=== PATIENT | male | born 1955 | race Caucasian/White ===

== ENCOUNTER 2017-02-24 11:35 | Inpatient (IN) ==
[2017-02-24] MEDS ORDERED: Ringers Solution, Lactated 1,000 ML IVC SCH (12:45)
[2017-02-24] MEDS ORDERED: CeFAZolin Pre 3,000 MG/100 ML 3,000 MG/100 ML BAG IVPB ONE (12:45)
[2017-02-24] MEDS ORDERED: Lidocaine -MPF 1% 2 ML VIAL ID ONE (12:45)
[2017-02-24] MEDS ORDERED: Vancomycin 2,000 MG in D5% in Water 500 ML IVPB ONE (12:45)
[2017-02-24] MEDS ORDERED: Albuterol 2.5 MG/3 ML NEBULIZER IH ONE (12:45)
--- NOTE | 2017-02-24 12:54 | Anesthesia Evaluation PreOp ---
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 Other Medical History: Diabetes Type II Anesthesia History: Past Anesthesia (none) Alcohol Use: heavy Drug use: marijuana Medications and Allergies Aspirin [Lo-Dose Aspirin EC] 81 mg PO DAILY 02/24/17 [History] Atorvastatin [Lipitor] 40 mg PO HS 02/24/17 [History] Carvedilol [Coreg] 6.25 mg PO BID 02/24/17 [History] Clopidogrel [Plavix] 75 mg PO DAILY 02/24/17 [History] Metformin HCl [Glucophage] 1,000 mg PO BID 02/24/17 [History] [place]-3/Dha/Epa/Fish Oil [Fish Oil 1,000 mg Softgel] 1 cap PO DAILY 02/24/17 [ History] 3 Allergy/AdvReac Type Severity Reaction Status Date / Time No Known Allergies Allergy Verified 02/24/17 12:35 - Meds/Allergy Pre-op Review Medications Reviewed: Yes Allergies Reviewed: Yes Beta Blockers on Current Med List: Yes If Beta Blockers taken, Date/Time (Last Dose taken): today 0800 Anesthesia Results - Labs Laboratory Tests 02/07/17 02/07/17 02/07/17 13:40 13:40 13:40 Hgb 16.4 Hct 51.0 H Plt Count 234 PT 12.2 H INR 1.1 APTT 30.9 Sodium 139 Potassium 4.7 H BUN 9 Creatinine 0.77 - Imaging Additional studies: stress test:The left ventricle is dilated. Gated LVEF = 43%. Medium sized, moderate-severe intensity, predominantly fixed perfusion defect involving the basal inferolateral wall and basal-mid inferior wall. Findings are consistent with myocardial infarction with mild ramya-infarct ischemia. Recommend cardiology consultation. Abnormal results were communicated to the ordering physician via [employer] message. Anesthesia Exam Selected Entries 02/24/17 12:34 Temperature 97.7 F Pulse Rate 66 Respiratory Rate 18 Blood Pressure 112/69 O2 Sat by Pulse Oximetry 92 Weight: 132kg NPO (# of Hours): 8 Pain Scale: 0 Pain Scale Used: Numeric (1 - 10) - HEENT Pupil (Motor): EOMI Mallampati: II Teeth: Normal Oral Opening: Greater than 3 - TAFE LECTURER LOC: Oriented TAFE LECTURER Motor: Normal RUE, Normal LUE, Normal RLE, Normal LLE, Normal Face TAFE LECTURER Sensory: Normal: RUE, LUE, RLE, LLE, Face - Cardiac Rhythm: Regular Murmur: None - Pulmonary Breath Sounds: bilateral Clear Respiratory Effort: Symmetrical Anesthesia Assess/Plan ASA Score: 4 Modified [place] Scale for Level of Consciousness: Cooperative, oriented, and tranquil Anesthetic Plan: General Monitoring Plan: Standard Monitors, A-Line Recovery Plan: PACU (Discussed risks of GA and lines. Aware of high risk. Questions answered and agrees to proceed.)
[2017-02-24] MEDS ORDERED: Heparin 1,000 UNITS/500 mL NS 500 ML ONE ×3 (13:54→14:27)
--- NOTE | 2017-02-24 14:03 | History & Physical Report ---
Date of Encounter: 02/24/17 Time of Encounter: 13:55 24 Hour HP Update - Instructions Instructions: If the History and Physical is less than 30 days old and was completed prior to A.M. admission and or procedure and has NOT been updated on calendar day of procedure please complete this update prior to performing procedure. - Update Patient reports changes in Medical Condition: No Changes in examination, assessment, or condition: No Changes in Medication: No Preop tests/diagnostics Reviewed: Yes Surgery Remains Indicated: Yes Consent for Planned Operative Procedure(s) Verified: Yes - Pre-Operative Checklist Preoperative Checklist Indicated: Yes Prophylactic Antibiotic Ordered: Yes (Vancomycin due to MRSA risk.) Home Medications Include Beta Srinivasan: Yes Beta Srinivasan Taken Today (Day of Surgery): Yes Beta Srinivasan Taken Yesterday (Day Prior to Surgery): Yes Is VTE Prophylaxis Indicated?: Yes
[2017-02-24] MEDS ORDERED: Bupivacaine-MPF 0.25% 10 ML VIAL ONE (14:27)
[2017-02-24] MEDS ORDERED: Vancomycin 1,000 MG VIAL ONE ×2 (14:27→15:33)
[2017-02-24] MEDS ORDERED: Heparin 1,000 UNITS/500 mL NS 0 ML ONE (15:33)
[2017-02-24] MEDS ORDERED: *HR* HYDROmorphone (PF) 1 MG/ML SYRINGE IVP PRN (16:03)
[2017-02-24] MEDS ORDERED: *HR* Labetalol 20 MG/4 ML SYRINGE IVP PRN ×2 (16:03→20:01)
[2017-02-24] MEDS ORDERED: Ondansetron 4 MG/2 ML VIAL IVP PRN ×2 (16:03→20:01)
--- NOTE | 2017-02-24 16:06 | Anesthesia Procedures ---
Date of Encounter: 02/24/17 Time of Encounter: 14:55 Procedures: Anesthesia - Arterial Line Consent obtained: verbal consent Time out performed: Yes Sedation: Versed (mg): 2 Sedation: Fentanyl (mcg): 100 Supplemental Oxygen via Nasal Cannula (L/min): 8 Local Anesthetic: Lidocaine 1% Amount of Anesthetic used (mls): 0.1 Size (Gauge): 20 Length (inches): 1 3/4 Technique Used: sterile prep, guide wire technique, direct puncture technique Post-Procedure: line taped into place, dry sterile dressing placed Patient tolerated procedure: well, no complications Complications: none Site: Radial L
[2017-02-24] MEDS ORDERED: *HR* Phenylephrine 10 MG/ML VIAL ONE (16:18)
[2017-02-24] MEDS ORDERED: *HR* Rocuronium Bromide 50 MG/5 ML VIAL ONE (16:18)
[2017-02-24] MEDS ORDERED: Lidocaine -MPF 4% 5 ML AMPUL ONE (16:18)
[2017-02-24] MEDS ORDERED: *HR* Heparin 5,000 UNIT/ML VIAL ONE ×2 (16:18→16:48)
[2017-02-24] MEDS ORDERED: *HR* Remifentanil 1 MG VIAL IVP ONE (16:18)
[2017-02-24] MEDS ORDERED: Lidocaine -MPF 2% 2 ML VIAL ONE ×2 (16:18)
[2017-02-24] MEDS ORDERED: *HR* FentaNYL (PF) 100 MCG/2 ML VIAL ONE (16:18)
[2017-02-24] MEDS ORDERED: *HR* Midazolam HCl 2 MG/2 ML VIAL ONE (16:18)
[2017-02-24] MEDS ORDERED: *HR* Propofol 200 MG/20 ML VIAL IVP ONE (16:18)
[2017-02-24] MEDS ORDERED: Protamine Sulfate 50 MG/5 ML VIAL IVP ONE (16:30)
[2017-02-24] MEDS ORDERED: EPHEDrine 50 MG/ML VIAL ONE (16:33)
[2017-02-24] MEDS ORDERED: Neostigmine Methylsulfate 3 MG/3 ML SYRINGE ONE (17:53)
[2017-02-24] MEDS ORDERED: *HR* Labetalol 20 MG/4 ML SYRINGE IVP ONE (17:57)
[2017-02-24] MEDS ORDERED: *HR* HYDROmorphone 2 MG/ML SYRINGE ONE (18:11)
--- NOTE | 2017-02-24 18:11 | Operative Note ---
Date of procedure: 02/24/17 Pre-op diagnosis: 80-99% Left internal carotid artery stenosis Post-op diagnosis: same Procedure: Left carotid endarterectomy with hemashield patch angioplasty. Complications: None Anesthesia: CHANGA Surgeon: Favian Contreras Estimated blood loss (cc): 100 Specimen: Left carotid plaque Condition: stable Disposition: PACU Procedure in Detail: Indications: The patient is a 62 year old male with a history of coronary artery disease, hypertension, tobacco abuse and diabetes who was found to have an 80-99% left internal carotid artery stenosis. A left carotid endarterectomy was recommended to reduce his risk of stroke. Procedure: The patient was identified in the preoperative area. The risks, benefits, and alternatives of the procedure were discussed and all questions were answered. The patient was then taken to the operating room and placed in supine position on the operating table. After induction of general endotracheal anesthesia, the patient was cleaned and draped in normal sterile fashion. A longitudinal incision was made anterior to the left sternocleidomastoid muscle. Hemostasis was obtained via electrocautery. Through a process of blunt , sharp, and electrocautery dissection, the platysma was traversed. The jugular vein was identified. The facial vein was clamped, divided, tied off with a 2-0 silk suture ligature. The jugular vein was retracted, exposing the carotid bifurcation. Patient received 3000 units of heparin intravenously at this time. Proximal dissection of the common and external carotid arteries were performed circumferentially. Dissection of the internal carotid was performed circumferentially. Vessels loops were passed around the internal and external carotid and an umbilical tape was passed from the common carotid artery. The patient received additional 2000 units of heparin intravenously. Additional heparin was given throughout the case to maintain adequate anticoagulation. After waiting adequate time for the heparin to circulate, the vessels were occluded and a longitudinal arteriotomy was made into the common carotid artery extending into the internal carotid beyond the plaque. The internal carotid artery loop was released and a shunt was advanced destiny the distal internal carotid artery. Vigorous pulsatile retrograde flow was noted at this time through the shunt. The shunt wound not advance easily through the internal carotid artery due to the angle of the artery. Given the strong retrograde flow and the sharp angle of the artery, no shunt was placed. A dental [place] was used to perform a standard endarterectomy. Proximal and distal endpoints were inspected. No elevated flaps were noted. Additional heparin was given throughout the procedure to maintain adequate anticoagulation. A Hemashield patch was cut to fit the defect and sutured in place with running 6 -0 Prolene. Prior to completing the closure, each vessel was flushed and then reoccluded. Heparinized saline was infused into the lumen. The patch was completed. Flow was restored in the external carotid artery, followed the common carotid artery, lastly the internal carotid artery was opened. A low resistance arterialized signal was present within the internal carotid artery beyond the patch. Thrombin and Gelfoam were used to aid in hemostasis. Meticulous hemostasis was obtained throughout the wound with electrocautery. Platelet rich and platelet poor plasma were infused into the wounds. The sternocleidomastoid was reapproximated with interrupted 3-0 Vicryl. Platelet rich and platelet poor plasma were infused into the wound. A TLS drain was brought through a separate stab incision and sutured in place with 0 silk suture. The platysma was reapproximated with running 3-0 Vicryl. Local anesthetic was infused in the skin. A 3-0 Monocryl was used to reapproximate the skin. Sterile dressing was applied. The patient was extubated, taken to the recovery room in stable condition.
[2017-02-24] MEDS ORDERED: Dextrose Gel 15 GM PO PRN ×2 (20:01)
[2017-02-24] MEDS ORDERED: *HR* Dextrose 50 % in Water (Syg) 50 ML SYRINGE IVP PRN (20:01)
[2017-02-24] MEDS ORDERED: Acetaminophen 325 MG TABLET PO PRN (20:01)
[2017-02-24] MEDS ORDERED: Naloxone 0.4 MG/ML INJ IVP PRN (20:01)
[2017-02-24] MEDS ORDERED: *HR* OxyCODONE Immed Rel 5 MG TABLET PO PRN (20:01)
[2017-02-24] MEDS ORDERED: D5% in Water 1,000 ML IVC PRN (20:01)
[2017-02-24] MEDS ORDERED: *HR* Morphine 2 MG/ML SYRINGE IVP PRN (20:01)
--- NOTE | 2017-02-24 20:07 | Anesthesia Evaluation Post Op ---
Date of Encounter: 02/24/17 Time of Encounter: 20:06 - Vital Signs Vital Signs: Last Vital Signs Temp 97.0 F L 02/24/17 20:02 Pulse 66 02/24/17 20:02 Resp 16 02/24/17 20:02 BP 106/72 02/24/17 20:02 Pulse Ox 95 02/24/17 20:02 - Lungs Lungs: Clear Ascult./Percussion - Airway Airway: Non-obstructed - Cardiovascular Regular Rate - Mental Status Mental Status: Alert & Oriented, Answers Appropriately - Pain Pain Scale: 2 - Nausea Vomiting Nausea Vomiting: Not Present - Hydration Hydration: Ice chips, Dupree catheter - Discharge PostOp Status: Transfer Patient to floor
[2017-02-24] MEDS ORDERED: Insulin LISPRO 300 UNITS/3 ML VIAL SQ SCH (21:00)
[2017-02-25] MEDS: *HR* Metoprolol 5 MG/5 ML VIAL IVP SCH ×2 (00:08→06:03)
[2017-02-25] MEDS ORDERED: Vancomycin 2,000 MG in D5% in Water 500 ML IVPB ONE (01:00)
[2017-02-25] MEDS ORDERED: *HR* Heparin 5,000 UNIT/ML VIAL SQ SCH ×2 (06:00)
[2017-02-25 07:18] VITALS: BP 97/76
[2017-02-25] MEDS ORDERED: Insulin LISPRO 300 UNITS/3 ML VIAL SQ SCH (07:30)
--- NOTE | 2017-02-25 08:35 | Discharge Summary ---
Date of Encounter: 02/25/17 Time of Encounter: 08:15 - Discharge Medications Prescriptions: OxyCODONE/APAP 5/325 [Percocet 5/325 MG] 1 each PO Q6HR PRN #25 tablet PRN Reason: POSTOPERATIVE PAIN Home Medications: Aspirin [Lo-Dose Aspirin EC] 81 mg PO DAILY 02/24/17 [History] Atorvastatin [Lipitor] 40 mg PO HS 02/24/17 [History] Carvedilol [Coreg] 6.25 mg PO BID 02/24/17 [History] Clopidogrel [Plavix] 75 mg PO DAILY 02/24/17 [History] Metformin HCl [Glucophage] 1,000 mg PO BID 02/24/17 [History] [place]-3/Dha/Epa/Fish Oil [Fish Oil 1,000 mg Softgel] 1 cap PO DAILY 02/24/17 [ History] OxyCODONE/APAP 5/325 [Percocet 5/325 MG] 1 each PO Q6HR PRN #25 tablet 02/25/17 [Rx] Allergies/Adverse Reactions: 3 Allergy/AdvReac Type Severity Reaction Status Date / Time No Known Allergies Allergy Verified 02/24/17 12:35 Date of admission: 02/24/17 20:07 Primary care physician: PCP [place] - Patient Status Disposition: Home, Self-Care Condition: Good Functional capacity at discharge: independent ambulation Overall status at discharge: patient is back to baseline - Discharge Instructions Follow Up With: Favian Contreras MD [Partnered Physician] - 03/14/17 3:10 pm [place],PCP [Primary Care Provider] - 03/04/17 9:15 am ([facility]PPER TE[facility] PLEASE FAX THE DISCHARGE SUMMARY TO THE PEPPER TEAM) Additional Instructions: May remove bandage and shower on 02/26/17. Wash wound gently and pat to dry No driving for [address] Contreras at [phone] with questions or concerns. - Diet and Activity Activity: increase activity as tolerated Diet: advance to your usual diet, diabetic diet - Hospital Course Hospital course: Mr. Macias is a 62 year old male - Time Spent with Patient Total time spent providing and/or coordinating discharge services: Exam Vital Signs, Last 4 Hours Temp Pulse Resp BP Pulse Ox 02/25/17 07:32 92 02/25/17 07:30 55 02/25/17 07:16 99.0 F 71 18 97/76 94 - VTE Documentation of Mechanical Device: Intermittent pneumatic compression device
[2017-02-25] MEDS ORDERED: (Omega-3/Dha/Epa/Fish Oil [Fish Oil 1,000 Mg Softgel]) PO SCH (09:00)
[2017-02-25] MEDS ORDERED: Aspirin Enteric Coated 81 MG Tablet PO SCH (09:00)
[2017-02-25] MEDS ORDERED: ceFAZolin 3,000 MG in D5% in Water 100 ML IVPB SCH (21:00)
== END 2017-02-25 10:45 | disposition home or self-care (01) | DRG 39 ==
LOC: SAMDAY 11:35 → 2NNU 20:07
PROVIDERS: ADMIT Surgery; ATTEND Surgery

== ENCOUNTER 2017-04-13 06:38 | Inpatient (IN) ==
[2017-04-13] MEDS ORDERED: CeFAZolin Pre 3,000 MG/100 ML 3,000 MG/100 ML BAG IVPB ONE (07:12)
[2017-04-13] MEDS ORDERED: Albuterol 2.5 MG/3 ML NEBULIZER IH ONE (07:12)
[2017-04-13] MEDS ORDERED: Lidocaine -MPF 1% 2 ML VIAL ID ONE (07:12)
[2017-04-13] MEDS ORDERED: Vancomycin 2,000 MG in D5% in Water 500 ML IVPB ONE ×2 (07:12→18:30)
[2017-04-13] MEDS ORDERED: Albuterol 2.5 MG/3 ML NEBULIZER ONE (07:14)
[2017-04-13] MEDS ORDERED: Plasma-Lyte A (PH 7.4) 1,000 ML IVC SCH (07:15)
[2017-04-13] MEDS ORDERED: *HR* Promethazine 25 MG/ML VIAL IVP PRN (07:23)
[2017-04-13] MEDS ORDERED: *HR* HYDROmorphone (PF) 1 MG/ML SYRINGE IVP PRN (07:23)
[2017-04-13] MEDS ORDERED: NiCARdipine 2.5 MG/10 ML Syringe IVPB ONE (07:23)
[2017-04-13] MEDS ORDERED: *HR* Labetalol 20 MG/4 ML SYRINGE IVP PRN ×2 (07:23→13:00)
[2017-04-13] MEDS ORDERED: Acetaminophen IV 1,000 MG/100 ML INFUS..BTL IVPB ONE (07:25)
--- NOTE | 2017-04-13 07:32 | Anesthesia Evaluation PreOp ---
Date of Encounter: 04/13/17 Time of Encounter: 07:30 - Past History Planned Operation: R-CEA Cardiac History: [place] ([place] - discovered 01/2017 with Pre-op testing. NO interventions required.), HTN (maintained on Coreg), Hyperlipidemia (maintained on Atorvastatin, Fish Oil), Other (PVDz s/p L-CEA 02/24/2017. 1. There is severe, 70-99%, stenosis of the right internal carotid artery by NASCET criteria. The distal right internal carotid artery is diffusely small in caliber as compared to the left, which may reflect near complete right internal carotid artery occlusion. 2. There is severe, 70-99%, stenosis of the left internal carotid artery by NASCET criteria. 3. Mild narrowing of the proximal left subclavian artery and mild narrowing of the left vertebral artery origin. NUCLEAR STRESS 02/07/2017 - The left ventricle is dilated. Gated LVEF = 43%. Medium sized, moderate-severe intensity, predominantly fixed perfusion defect involving the basal inferolateral wall and basal-mid inferior wall. Findings are consistent with myocardial infarction with mild ramya-infarct ischemia. Recommend cardiology consultation. 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 Other Medical History: Diabetes Type II (maintained on Metformin) Anesthesia History: No Prior Anesthetic Complications, Past Anesthesia Alcohol Use: heavy Drug use: marijuana Medications and Allergies Aspirin [Lo-Dose Aspirin EC] 81 mg PO DAILY 02/24/17 [History] Carvedilol [Coreg] 6.25 mg PO BID 02/24/17 [History] Clopidogrel [Plavix] 75 mg PO DAILY 02/24/17 [History] Metformin HCl [Glucophage] 1,000 mg PO BID 02/24/17 [History] [place]-3/Dha/Epa/Fish Oil [Fish Oil 1,000 mg Softgel] 1 cap PO DAILY 02/24/17 [ History] Atorvastatin [Lipitor] 10 mg PO HS 04/13/17 [History] 3 Allergy/AdvReac Type Severity Reaction Status Date / Time No Known Allergies Allergy Verified 04/13/17 07:35 - Meds/Allergy Pre-op Review Medications Reviewed: Yes Allergies Reviewed: Yes Beta Blockers on Current Med List: Yes (Carvedilol) If Beta Blockers taken, Date/Time (Last Dose taken): 04/13/2017 @ 0500 Anesthesia Exam O2 Sat Height 1.93 m Height 1.93 m Height 1.93 m Weight 131.542 kg Weight 131.542 kg Weight 131.542 kg O2 Sat by Pulse Oximetry 91 O2 Sat by Pulse Oximetry 91 Vital Signs Temp Pulse Resp BP Pulse Ox 98.3 F 81 18 108/74 91 04/13/17 07:14 04/13/17 07:14 04/13/17 07:14 04/13/17 07:14 04/13/17 07:14 Height: 6'4" Weight: 290# BMI = 35.3 NPO (# of Hours): MNOc - HEENT Pupil (Motor): Pupils equal, EOMI Mallampati: III Teeth: Poor dentition Oral Opening: Greater than 3 - OFFICE MACHINE PUNCH OPERATOR LOC: Oriented OFFICE MACHINE PUNCH OPERATOR Motor: Normal RUE, Normal LUE, Normal RLE, Normal LLE, Normal Face OFFICE MACHINE PUNCH OPERATOR Sensory: Normal: RUE, LUE, RLE, LLE, Face - Cardiac Rhythm: Regular Murmur: None - Pulmonary Breath Sounds: bilateral Clear Respiratory Effort: Symmetrical Anesthesia Assess/Plan ASA Score: 3 (HTN, Chol, PVDz, CAD) Modified David Scale for Level of Consciousness: Cooperative, oriented, and tranquil Anesthetic Plan: General Monitoring Plan: Standard Monitors, A-Line Recovery Plan: PACU Anes Supervising Prov Stmt: Pt seen/evaluated, R&B Discussed, questions answered and consent obtained. Seth Rubio MD
[2017-04-13] MEDS ORDERED: Heparin 1,000 UNITS/500 mL NS 500 ML ONE (07:45)
[2017-04-13] MEDS ORDERED: *HR* Phenylephrine 10 MG/ML VIAL ONE (07:47)
[2017-04-13] MEDS ORDERED: *HR* Propofol 200 MG/20 ML VIAL IVP ONE ×2 (07:48→12:07)
[2017-04-13] MEDS ORDERED: *HR* Remifentanil 2 MG VIAL IVP ONE ×2 (07:48→09:13)
[2017-04-13] MEDS ORDERED: *HR* FentaNYL (PF) 100 MCG/2 ML VIAL ONE (07:48)
[2017-04-13] MEDS ORDERED: Lidocaine 1% 20 ML MDV ONE (07:57)
[2017-04-13] MEDS ORDERED: Heparin 1,000 UNITS/500 mL NS 1,000 ML ONE (07:57)
[2017-04-13] MEDS ORDERED: Bupivacaine-MPF 0.25% 10 ML VIAL ONE (07:57)
[2017-04-13] MEDS ORDERED: Protamine Sulfate 50 MG/5 ML VIAL IVP ONE (07:57)
--- NOTE | 2017-04-13 07:59 | History & Physical Report ---
Date of Encounter: 04/13/17 Time of Encounter: 07:56 24 Hour HP Update - Instructions Instructions: If the History and Physical is less than 30 days old and was completed prior to A.M. admission and or procedure and has NOT been updated on calendar day of procedure please complete this update prior to performing procedure. - Update Patient reports changes in Medical Condition: No Changes in examination, assessment, or condition: No Changes in Medication: No Preop tests/diagnostics Reviewed: Yes Surgery Remains Indicated: Yes Consent for Planned Operative Procedure(s) Verified: Yes - Pre-Operative Checklist Preoperative Checklist Indicated: Yes Prophylactic Antibiotic Ordered: Yes (vancomycin due to MRSA risk) Home Medications Include Beta Srinivasan: Yes Beta Srinivasan Taken Today (Day of Surgery): Yes Beta Srinivasan Taken Yesterday (Day Prior to Surgery): Yes Is VTE Prophylaxis Indicated?: Yes
[2017-04-13] MEDS ORDERED: Acetaminophen IV 0 MG/0 ML INFUS..BTL ONE (08:19)
[2017-04-13] MEDS ORDERED: *HR* Midazolam HCl 2 MG/2 ML VIAL ONE (08:23)
[2017-04-13] MEDS ORDERED: EPHEDrine 50 MG/ML VIAL ONE ×2 (08:53→12:10)
[2017-04-13] MEDS ORDERED: *HR* Heparin 5,000 UNIT/ML VIAL ONE (09:52)
--- NOTE | 2017-04-13 12:11 | Operative Note ---
Date of procedure: 04/13/17 Pre-op diagnosis: 80-99% Right Internal Carotid Artery Stenosis Post-op diagnosis: same Procedure: Right carotid endarterectomy with hemashield patch angioplasty. Complications: None Anesthesia: CHANGA Surgeon: Favian Contreras Estimated blood loss (cc): 100 Specimen: Right carotid plaque Condition: stable Disposition: PACU Procedure in Detail: Indications: The patient is a 62 year old male who was found by CT angiogram to have an 80-99% right internal carotid artery stenosis. A right carotid endarterectomy was recommended to reduce his risk of cerebrovascular accident. Procedure: The patient was identified in the preoperative area. The risks, benefits, and alternatives of the procedure were discussed and all questions were answered. The patient was then taken to the operating room and placed in supine position on the operating table. After induction of general endotracheal anesthesia, the patient was cleaned and draped in normal sterile fashion. A longitudinal incision was made anterior to the right sternocleidomastoid muscle. Hemostasis was obtained via electrocautery. Through a process of blunt , sharp, and electrocautery dissection, the platysma was traversed. The jugular vein was identified. The facial vein was clamped, divided and then ligated with a 2-0 silk suture ligature. The jugular vein was retracted to expose the carotid bifurcation. Patient received 3000 units of heparin intravenously at this time. Proximal dissection of the common and external carotid arteries were performed circumferentially. Dissection of the internal carotid was performed circumferentially. Vessels loops were passed around the internal and external carotid and an umbilical tape was passed from the common carotid artery. The patient received additional 2000 units of heparin intravenously. After waiting adequate time for it to circulate, the vessels were occluded and a longitudinal arteriotomy was made into the common carotid artery extending into the internal carotid beyond the plaque. Vigorous pulsatile retrograde flow was noted from the internal carotid artery upon release of the loop. Due to adequate retrograde perfusion, a shunt was not placed. A dental [place] was used to perform a standard endarterectomy. Proximal and distal endpoints were inspected. No elevated flaps were noted. Additional heparin was given throughout the procedure to maintain adequate anticoagulation. A Hemashield patch was cut to fit the defect and sutured in place with running 6 -0 Prolene. Prior to completing the closure, each vessel was flushed and then reoccluded. Heparinized saline was infused into the lumen. The patch was completed. Flow was restored in the external carotid artery, followed the common carotid artery, lastly the internal carotid artery was opened. A low resistance arterialized signal was present within the internal carotid artery beyond the patch. Thrombin and Gelfoam were used to aid in hemostasis. Meticulous hemostasis was obtained throughout the wound with electrocautery. Platelet rich and platelet poor plasma were infused into the wounds. The sternocleidomastoid was reapproximated with interrupted 3-0 Vicryl. Platelet rich and platelet poor plasma were infused into the wound. A TLS drain was brought through a separate stab incision and sutured in place with 0 silk suture. The platysma was reapproximated with running 3-0 Vicryl. Local anesthetic was infused in the skin. A 3-0 Monocryl was used to reapproximate the skin. Sterile dressing was applied. The patient was extubated, taken to the recovery room in stable condition.
--- NOTE | 2017-04-13 12:43 | Anesthesia Evaluation Post Op ---
Date of Encounter: 04/13/17 Time of Encounter: 12:40 - Vital Signs Vital Signs: Vital Signs/O2 Sat/Glucose, Most Recent Temp Pulse Resp BP Pulse Ox 97.8 F 90 20 120/75 90 04/13/17 12:30 04/13/17 12:30 04/13/17 12:30 04/13/17 12:30 04/13/17 12:30 Blood Glucose* 105 - Lungs Lungs: Clear Ascult./Percussion - Airway Airway: Non-obstructed - Cardiovascular Regular Rate - Mental Status Mental Status: Alert & Oriented, Answers Appropriately - Pain Pain Scale: 0 Pain Scale used: Numeric (1 - 10) - Nausea Vomiting Nausea Vomiting: Not Present - Hydration Hydration: Ice chips, Dupree catheter Notes: 04/13/17 12:41 AAOx3, VSS with no complications - Discharge PostOp Status: Transfer Patient to floor
[2017-04-13] MEDS ORDERED: *HR* HYDROcodone/Acet 5/325 mg TABLET PO PRN (13:00)
[2017-04-13] MEDS ORDERED: Acetaminophen 325 MG TABLET PO PRN (13:00)
[2017-04-13] MEDS ORDERED: *HR* Morphine 2 MG/ML SYRINGE IVP PRN (13:00)
[2017-04-13] MEDS ORDERED: *HR* OxyCODONE Immed Rel 5 MG TABLET PO PRN (13:00)
[2017-04-13] MEDS ORDERED: Naloxone 0.4 MG/ML INJ IVP PRN (13:00)
[2017-04-13] MEDS ORDERED: Ondansetron 4 MG/2 ML VIAL IVP PRN (13:00)
[2017-04-13] MEDS: ceFAZolin 3,000 MG in D5% in Water 100 ML IVPB SCH ×2 (14:06→22:14)
--- NOTE | 2017-04-13 14:14 | Discharge Summary ---
<Myron Montalvo - Last Filed: 04/14/17 12:02> Date of Encounter: 04/14/17 Time of Encounter: 12:02 - Discharge Diagnosis (1) Symptomatic stenosis of both carotid arteries Priority: Primary Status: Chronic (2) Essential hypertension Priority: Secondary Status: Chronic (3) Mixed hyperlipidemia Priority: Secondary Status: Chronic (4) Tobacco abuse Priority: Secondary Status: Chronic - Discharge Medications Prescriptions: OxyCODONE/APAP 5/325 [Percocet 5/325 MG] 1 each PO Q6H PRN #20 tablet PRN Reason: postoperative pain Home Medications: Aspirin [Lo-Dose Aspirin EC] 81 mg PO DAILY 02/24/17 [History] Carvedilol [Coreg] 6.25 mg PO BID 02/24/17 [History] Clopidogrel [Plavix] 75 mg PO DAILY 02/24/17 [History] Metformin HCl [Glucophage] 1,000 mg PO BID 02/24/17 [History] [place]-3/Dha/Epa/Fish Oil [Fish Oil 1,000 mg Softgel] 1 cap PO DAILY 02/24/17 [ History] Atorvastatin [Lipitor] 10 mg PO HS 04/13/17 [History] OxyCODONE/APAP 5/325 [Percocet 5/325 MG] 1 each PO Q6H PRN #20 tablet 04/13/17 [ Rx] Allergies/Adverse Reactions: 3 Allergy/AdvReac Type Severity Reaction Status Date / Time No Known Allergies Allergy Verified 04/13/17 07:35 Date of admission: 04/13/17 12:59 Primary care physician: [facility]CP [facility] Consults: none Anticipated date of discharge: 04/14/17 - Patient Status Disposition: Home, Self-Care Condition: Good Functional capacity at discharge: independent ambulation Overall status at discharge: patient is progressing back to baseline - Discharge Instructions Instructions: Oxycodone/Acetaminophen (By mouth), How to Stop Smoking (DC), Carotid Endarterectomy (DC), Peripheral Vascular Disorders (DC) Follow Up With: Favian Contreras MD [Partnered Physician] - 05/25/17 1:00 pm [place],PCP [Primary Care Provider] - 04/20/17 9:15 am - Diet and Activity Activity: increase activity as tolerated Diet: advance to your usual diet - Hospital Course Hospital course: Mr. Macias is a 62 year old male S/p right CEA. No complications. No post op complaints. - Time Spent with Patient Total time spent providing and/or coordinating discharge services: Exam Vital Signs, Last 4 Hours Temp Pulse BP Pulse Ox 04/14/17 11:52 60 04/14/17 11:37 97.9 F 65 111/64 98 General: Present: Conversant, No Apparent Distress, Well developed, Well nourished HEENT: Present: Atraumatic, Normocephaly, Trachea midline Neck: Absent: JVD, Midline deformity, Tracheal deviation Cardiac: Present: Reg Rate and Rhythm, Normal S1 and S2 Lungs: Present: Normal Breath Sounds Neuro: Present: Alert and responsive, No focal deficits noted, Cranial nerves grossly intact Abdomen: Present: Soft, Non-tender <Favian Contreras - Last Filed: 04/19/17 07:04> Date of Encounter: 04/14/17 - Discharge Diagnosis (1) Bilateral carotid artery stenosis Priority: Primary Status: Chronic (2) Essential hypertension Priority: Secondary Status: Chronic (3) Mixed hyperlipidemia Status: Chronic (4) Tobacco abuse Priority: Secondary Status: Chronic Date of admission: 04/13/17 12:59 Primary care physician: [facility]CP [facility] Procedure(s) Performed: Right carotid endarterectomy. Discharging clinician: Favian Contreras - Hospital Course Hospital course: Mr. Macias is a 62 year old male with a histtory of carotid stenosis. He underwent a carotid endarterectomy on 04/13/17. He was discharged on postoperative day #1 without complications. - Time Spent with Patient Total time spent providing and/or coordinating discharge services: Exam Vital Signs, Last 4 Hours Temp Pulse Resp BP Pulse Ox 04/13/17 14:00 73 16 110/64 91 04/13/17 13:45 77 16 106/67 91 04/13/17 13:30 71 16 111/63 94 04/13/17 13:15 80 16 111/66 95 04/13/17 13:00 86 16 110/62 96 04/13/17 12:52 97.8 F 87 18 121/69 90 04/13/17 12:40 98.1 F 90 20 123/71 91 04/13/17 12:30 97.8 F 90 20 120/75 90 04/13/17 12:20 91 20 137/74 90 04/13/17 12:10 96 20 147/83 90 04/13/17 12:00 97.9 F 96 20 158/88 91 - VTE Documentation of Mechanical Device: Intermittent pneumatic compression device
[2017-04-13] MEDS ORDERED: *HR* Heparin 5,000 UNIT/ML VIAL SQ SCH (18:00)
[2017-04-13] MEDS: *HR* Metoprolol 5 MG/5 ML VIAL IVP SCH (18:02)
[2017-04-13] MEDS: *HR* Metformin 500 MG TABLET PO SCH (18:04)
[2017-04-13] MEDS ORDERED: Vancomycin 0 MG in D5% in Water 250 ML IVPB ONE (18:30)
[2017-04-14] MEDS: *HR* Metoprolol 5 MG/5 ML VIAL IVP SCH ×2 (00:02→06:05)
[2017-04-14] MEDS ORDERED: *HR* Heparin 5,000 UNIT/ML VIAL SQ SCH (06:00)
[2017-04-14] MEDS: *HR* Metformin 500 MG TABLET PO SCH (07:56)
[2017-04-14] MEDS ORDERED: OMEGA PO SCH (09:00)
[2017-04-14] MEDS ORDERED: FISH OIL PO SCH (09:00)
[2017-04-14] MEDS ORDERED: DHA PO SCH (09:00)
[2017-04-14] MEDS ORDERED: Aspirin Enteric Coated 81 MG Tablet PO SCH (09:00)
[2017-04-14] MEDS ORDERED: EPA PO SCH (09:00)
[2017-04-14 11:43] VITALS: BP 111/64
== END 2017-04-14 13:12 | disposition home or self-care (01) | DRG 37 ==
LOC: SAMDAY 06:38 → 2NNU 12:59
PROVIDERS: ADMIT Surgery; ATTEND Surgery